=== PATIENT | male | born 1965 | race African-American/Black ===

== ENCOUNTER 2017-12-25 13:49 | Emergency (ER) | payer SELFPAY ==
[~2017-12-25] VITALS: Ht 165.1 cm; Wt 61.2 kg
[~2017-12-25 13:49] MED LIST: FLUC150T2 PO; LTRS15C TOP; NYST1POW22 TOP
[2017-12-25 14:20] LABS: BASOPHILS # (AUTO) 0.1 10^3/uL (0.0-0.1); BASOPHILS % (AUTO) 1 % (0-10); EOSINOPHILS # (AUTO) 0.1 10^3/uL (0.0-0.3); EOSINOPHILS % (AUTO) 2 % (0-10); HEMATOCRIT 43 % (40-54); LYMPHOCYTES # (AUTO) 1.7 X 10^3 (1.0-4.0); LYMPHOCYTES % (AUTO) 30 % (12-44); MEAN CORPUSCULAR HEMOGLOBIN 30 PG (25-34); MEAN CORPUSCULAR HGB CONC 35 G/DL (32-36); MEAN CORPUSCULAR VOLUME 86 FL (80-99); MEAN PLATELET VOLUME 8.6 FL (7.4-10.4); MONOCYTES # (AUTO) 0.7 X 10^3 (0.0-1.0); MONOCYTES % (AUTO) 11 % (0-12); NEUTROPHILS # (AUTO) 3.2 X 10^3 (1.8-7.8); NEUTROPHILS % (AUTO) 56 % (42-75); PLATELET COUNT 259 10^3/uL (130-400); RED BLOOD COUNT 5.01 10^6/uL (4.35-5.85); RED CELL DISTRIBUTION WIDTH 13.4 % (10.0-14.5); WHITE BLOOD COUNT 5.8 10^3/uL (4.3-11.0)
--- NOTE | 2017-12-25 14:24 | ED Lower Extremity ---
General Chief Complaint: Lower Extremity Stated Complaint: RT FOOT SWELLING AND PUSS DRAINAGE Source: patient Exam Limitations: no limitations History of Present Illness Date Seen by Provider: Dec 25, 2017 Time Seen by Provider: 14:00 Initial Comments Patient is a 52-year-old male who presents to the emergency room with complaints of purulent drainage from his right foot. He was seen and evaluated on 12/22/17 in are emergency room and was given oral antifungals and topical nystatin powder. He reports that the pain and swelling, and drainage started yesterday. He reports that the only reason he really came to the emergency room was to get a work note for today and tomorrow so that he could buy his foot air out. Onset: yesterday Pain/Injury Location: right foot Modifying Factors: Improves With Movement Allergies and Home Medications Allergies Coded Allergies: No Known Drug Allergies (Unverified , 05/18/10) Home Medications Betamethasone/Clotrimazole 15 Gm Cr, 0 TOP BID APPLY TO AFFECTED AREA(S) Prescribed by: PADILLA MENDEZ on 05/18/101812 Fluconazole 150 Mg Tablet, 150 MG PO WEEK Prescribed by: WINSTON PERALTA on 12/22/172045 Nystatin 1 Each Powder.ea., 1 EACH TOP TID Prescribed by: WINSTON PERALTA on 12/22/172045 Patient Home Medication List Home Medication List Reviewed: Yes Constitutional: see HPI; No chills, No fever EENTM: no symptoms reported Respiratory: see HPI; No cough, No short of breath, No wheezing Cardiovascular: see HPI; No chest pain, No edema, No palpitations Gastrointestinal: see HPI; No abdominal pain, No constipation, No diarrhea, No nausea Genitourinary: see HPI Musculoskeletal: see HPI; No gout, No joint pain Skin: see HPI; No change in color, No change in hair/nails Psychiatric/Neurological: See HPI; Denies Anxiety, Denies Depressed All Other Systems Reviewed Negative Unless Noted: Yes Past Jqzysbb-Yaixic-Qoszcn Hx Past Med/Social Hx: Reviewed Nursing Past Med/Soc Hx Patient Social History 2nd Hand Smoke Exposure: No Recent Foreign Travel: No Contact w/Someone Who Travel: No Past Medical History Surgeries: No Respiratory: No Cardiac: No Neurological: No Genitourinary: No Gastrointestinal: No Musculoskeletal: No Endocrine: No HEENT: No Cancer: No Psychosocial: No Integumentary: No Blood Disorders: No Family Medical History Reviewed Nursing Family Hx Physical Exam Vital Signs Vital Signs - First Documented 12/25/17 14:00 Temp 97.9 Pulse 98 Resp 22 B/P (MAP) 139/107 (118) Pulse Ox 97 Capillary Refill : General Appearance: WD/WN, no apparent distress HEENT: PERRL/EOMI, normal ENT inspection, TMs normal, pharynx normal Neck: non-tender, full range of motion, supple, normal inspection Cardiovascular: normal peripheral pulses, regular rate, rhythm, no edema, no gallop, no JVD, no murmur Respiratory: chest non-tender, lungs clear, normal breath sounds Gastrointestinal: normal bowel sounds, non tender, soft, no organomegaly, no pulsatile mass Back: normal inspection, no CVA tenderness Feet: right foot infection (there is purulent drainage that was cultured draining from in between each of the toes on the right foot. There is redness to the right great toe.), right foot pain, right foot soft tissue tenderness, right foot swelling Neurologic/Tendon: normal sensation, normal motor functions, normal tendon functions, responds to pain Neurologic/Psychiatric: alert, normal mood/affect, oriented x 3 Skin: normal color, warm/dry Lymphatic: no adenopathy Progress/Results/Core Measures Results/Orders Lab Results Laboratory Tests Test 12/25/17 14:10 Range/Units White Blood Count 5.8 4.3-11.0 10^3/uL Red Blood Count 5.01 4.35-5.85 10^6/uL Hemoglobin 15.0 13.3-17.7 G/DL Hematocrit 43 40-54 % Mean Corpuscular Volume 86 80-99 FL Mean Corpuscular Hemoglobin 30 25-34 PG Mean Corpuscular Hemoglobin Concent 35 32-36 G/DL Red Cell Distribution Width 13.4 10.0-14.5 % Platelet Count 259 130-400 10^3/uL Mean Platelet Volume 8.6 7.4-10.4 FL Neutrophils (%) (Auto) 56 42-75 % Lymphocytes (%) (Auto) 30 12-44 % Monocytes (%) (Auto) 11 0-12 % Eosinophils (%) (Auto) 2 0-10 % Basophils (%) (Auto) 1 0-10 % Neutrophils # (Auto) 3.2 1.8-7.8 X 10^3 Lymphocytes # (Auto) 1.7 1.0-4.0 X 10^3 Monocytes # (Auto) 0.7 0.0-1.0 X 10^3 Eosinophils # (Auto) 0.1 0.0-0.3 10^3/uL Basophils # (Auto) 0.1 0.0-0.1 10^3/uL Sodium Level 139 135-145 MMOL/L Potassium Level 4.6 3.6-5.0 MMOL/L Chloride Level 106 98-107 MMOL/L Carbon Dioxide Level 24 21-32 MMOL/L Anion Gap 9 5-14 MMOL/L Blood Urea Nitrogen 13 7-18 MG/DL Creatinine 1.15 0.60-1.30 MG/DL Estimat Glomerular Filtration Rate > 60 BUN/Creatinine Ratio 11 Glucose Level 111 H 70-105 MG/DL Calcium Level 9.5 8.5-10.1 MG/DL Total Bilirubin 0.5 0.1-1.0 MG/DL Aspartate Amino Transf (AST/SGOT) 21 5-34 U/L Alanine Aminotransferase (ALT/SGPT) 17 0-55 U/L Alkaline Phosphatase 51 40-136 U/L C-Reactive Protein High Sensitivity 1.65 H 0.00-0.50 MG/DL Total Protein 7.4 6.4-8.2 GM/DL Albumin 4.1 3.2-4.5 GM/DL My Orders Orders - DELISA ABREU Comprehensive Metabolic Panel (12/25/17 14:07) Saline Lock/Iv-Start (12/25/17 14:07) Cbc With Automated Diff (12/25/17 14:07) Wound Culture (12/25/17 14:07) Hs C Reactive Protein (12/25/17 14:15) Levofloxacin Tablet (Levaquin Tablet) (12/25/17 15:00) Medications Given in ED Current Medications Medications Dose Ordered Sig/Monica Route Start Time Stop Time Status Last Admin Dose Admin Levofloxacin 500 mg ONCE ONCE PO 12/25/17 15:00 12/25/17 15:01 DC 12/25/17 15:13 500 MG Vital Signs/I&O 12/25/17 12/25/17 14:00 15:24 Temp 97.9 97.9 Pulse 98 98 Resp 22 22 B/P (MAP) 139/107 (118) 139/107 (118) Pulse Ox 97 97 Progress Progress Note : Time: 14:57 Progress Note The patient is an established patient at [facility] and he reports that he has limited funds for prescriptions. I have ordered Levaquin by mouth 500 mg here in the emergency room because I suspect that the infection is a pseudomonas judging by the smell I have cultured the wound for microbiology studies. I am getting in touch with Dr. Brewer to set up a follow-up appointment and for writing the remainder of the Levaquin prescription that can be filled at [facility]. I spoke to Dr. Brewer and she is going to finish riding the prescription for Levaquin to be picked up at [facility] and she is set up a follow-up appointment for December 29 at 1020 Jodi Valles APRN Departure Impression Primary Impression: Infection of right foot Disposition: HOME, SELF-CARE Condition: Stable/Unchanged Departure-Patient Inst. Referrals: NO,LOCAL PHYSICIAN (PCP) Primary Care Physician [facility] Patient Instructions: Cellulitis (Skin Infection), Adult (DC) Add. Discharge Instructions: Take medication as directed. I spoke with Dr. Brewer and she is filling your prescription at [facility] you need to pick that up after you're discharged from here. The prescription is for Levaquin. You have a follow-up appointment scheduled for December 30 at 1020 with Jodi Valles APRN at the [facility]. Return back to the emergency room for any concerns as needed. All discharge instructions reviewed with patient and/or family. Voiced understanding. Work/School Note: Work Release Form Date Seen in the Emergency Department: Dec 25, 2017 Return to Work: Dec 29, 2017 Restrictions: No Restrictions DELISA ABREU Dec 25, 2017 14:24
[2017-12-25 14:37] LABS: ALANINE AMINOTRANSFERASE 17 U/L (0-55); ALBUMIN 4.1 GM/DL (3.2-4.5); ALKALINE PHOSPHATASE 51 U/L (40-136); BILIRUBIN,TOTAL 0.5 MG/DL (0.1-1.0); BUN/CREATININE RATIO 11; CALCIUM 9.5 MG/DL (8.5-10.1); CARBON DIOXIDE 24 MMOL/L (21-32); CHLORIDE 106 MMOL/L (98-107); CREATININE SERUM 1.15 MG/DL (0.60-1.30); GFR ESTIMATED > 60; GLUCOSE 111 MG/DL (70-105); POTASSIUM 4.6 MMOL/L (3.6-5.0); SODIUM 139 MMOL/L (135-145); TOTAL PROTEIN 7.4 GM/DL (6.4-8.2)
[2017-12-25] MEDS ORDERED: LEVOFLOXACIN 500 MG TAB (LEVAQUIN) PO ONE (15:00)
[2017-12-25 15:24] VITALS: BP 139/107
== END 2017-12-25 15:29 | disposition home or self-care (01) ==
LOC: EDUNIT# 13:49 → ER 13:51
DX: M79.89 Other specified soft tissue disorders (principal)
CPT/HCPCS: 36415; 80053; 85025; 86141; 87070; 87077; 87186; 87205

== ENCOUNTER → 2018-05-01 | Outpatient (CLI) | payer OTHER | LOC: WOUNDCARE 08:02 | PROVIDERS: ATTEND Surgery | DX: B35.3 Tinea pedis (principal); T65.222A Toxic effect of tobacco cigarettes, intentional self-harm, initial encounter | CPT/HCPCS: 99213 ==

== ENCOUNTER → 2018-05-08 | Outpatient (CLI) | payer OTHER | LOC: WOUNDCARE 08:31 | PROVIDERS: ATTEND Surgery | DX: B35.3 Tinea pedis (principal) | CPT/HCPCS: 99212 ==

== ENCOUNTER → 2018-05-14 | Outpatient (CLI) | payer OTHER | LOC: WOUNDCARE 12:45 | PROVIDERS: ATTEND Orthopaedic Surgery Hand Surgery | DX: B35.3 Tinea pedis (principal); T65.222A Toxic effect of tobacco cigarettes, intentional self-harm, initial encounter | CPT/HCPCS: 99212 ==

== ENCOUNTER 2021-10-08 10:16 | Emergency (ER) | payer BC ==
[~2021-10-08] VITALS: Ht 165.1 cm; Wt 61.2 kg
[~2021-10-08 10:16] MED LIST changes: -FLUC150T2 PO; +FLUC150T41 PO
--- NOTE | 2021-10-08 11:08 | ED General ---
General Chief Complaint: Cardiac/General Problems Stated Complaint: DIZZY, VOMTING, HEADACHE Nursing Triage Note: PT AMB TO RM 10 WITH COMPLAINT OF N/V, HTN, DIZZINESS, HOUSE FOR A COUPLE DAYS. NO HX OF HTN. Source of Information: Patient Exam Limitations: No Limitations History of Present Illness Date Seen by Provider: Oct 08, 2021 Time Seen by Provider: 11:06 Initial Comments Patient is a 56-year-old male who presents ED with headache, dizziness, vomiting with generalized weakness. Symptoms started last night. States he started feeling weak and fatigue and gradually developed a frontal headache and rates pain 4 out of 10. Head pain radiates to the top part of his head has been constant without increasing pain with exertion or movement. Blurry vision bilateral with generalized weakness. Did vomit once this morning when he got up. Report bilateral ear ringing. No recent URI. Dizziness seems to be worse with walking, but denies the room spinning. No chest pain cough, shortness of breath, abdominal pain, diarrhea or urinary symptoms. Patient hypertensive here in the ED. Denies of any current medical problems. Denies taking any current medication. Normal urination. No one else at home has been sick. Denies fever, neck pain, mid to lower back pain, unilateral muscle weakness or sensory changes facial droop, change in mental status, hallucinations. Allergies and Home Medications Allergies Coded Allergies: No Known Drug Allergies (Unverified , 05/18/10) Patient Home Medication List Home Medication List Reviewed: Yes Multivitamin (Multivitamin) 1 Each Tablet, 1 EACH PO DAILY, (Reported) Entered as Reported by: SAIGE TA on 10/09/21 0939 Discontinued Medications Betamethasone/Clotrimazole (Lotrisone Cream 15 Gm) 15 Gm Cr, 0 TOP BID Discontinued Reason: No Longer Taking Prescribed by: PADILLA MENDEZ on 05/18/10 181 Fluconazole (Fluconazole) 150 Mg Tablet, 150 MG PO WEEK Discontinued Reason: No Longer Taking Prescribed by: WINSTON PERALTA on 12/22/172045 Hydrochlorothiazide (Hydrochlorothiazide) 12.5 Mg Tablet, 12.5 MG PO DAILY Discontinued Reason: No Longer Taking Prescribed by: SUSANNA MALDONADO on 10/08/21 1450 Nystatin (Nystatin) 1 Each Powder.ea., 1 EACH TOP TID Discontinued Reason: No Longer Taking Prescribed by: WINSTON PERALTA on 12/22/172045 Review of Systems Review of Systems Constitutional: No chills, No diaphoresis; malaise, weakness EENTM: blurred vision Respiratory: No cough, No hemoptysis, No short of breath Cardiovascular: No chest pain, No edema Gastrointestinal: No abdominal pain, No diarrhea; nausea, vomiting Genitourinary: No decreased output, No discharge Musculoskeletal: No back pain, No joint pain, No muscle stiffness, No muscle cramps Skin: No change in color, No change in hair/nails Psychiatric/Neurological: Headache; Denies Numbness; Weakness All Other Systems Reviewed Negative Unless Noted: Yes Past Oxgicjk-Owypdm-Wookln Hx Patient Social History Tobacco Use?: Yes Tobacco type used: Cigarettes Smoking Status: Current Everyday Smoker Use of E-Cig and/or Vaping dev: No Substance use?: Yes Substance type: Marijuana Alcohol Use?: No Pt feels they are or have been: No Immunizations Up To Date First/Initial COVID19 Vaccinat: 2020 Second COVID19 Vaccination Maury: 2020 COVID19 Vaccine Physician Practice Coordinator: emma Seasonal Allergies Seasonal Allergies: No Past Medical History Surgeries: Yes (LUNG ) Respiratory: No Cardiac: No Neurological: No Genitourinary: No Gastrointestinal: No Musculoskeletal: No Endocrine: No HEENT: No Cancer: No Psychosocial: No Integumentary: No Blood Disorders: No Physical Exam Vital Signs Vital Signs - First Documented 10/08/21 10:24 Temp 36.8 Pulse 72 Resp 16 B/P (MAP) 175/119 (137) Pulse Ox 100 O2 Delivery Room Air Capillary Refill : Less Than 3 Seconds Height, Weight, BMI Height: 5'5.00" Weight: 135lbs. 0oz. [id number]; 22.00 BMI Method:Stated General Appearance: No Apparent Distress, WD/WN Eyes: Bilateral Eye Normal Inspection, Bilateral Eye PERRL, Bilateral Eye EOMI HEENT: PERRL/EOMI, TMs Normal, Normal ENT Inspection, Pharynx Normal Neck: Full Range of Motion, Normal Inspection, Non Tender, Supple, Other (No meningeal signs) Respiratory: Chest Non Tender, Lungs Clear, Normal Breath Sounds, No Accessory Muscle Use, No Respiratory Distress Cardiovascular: Regular Rate, Rhythm, No Edema, No Gallop, No JVD Gastrointestinal: Normal Bowel Sounds, No Organomegaly Back: Normal Inspection, No CVA Tenderness Extremity: Normal Capillary Refill, Normal Inspection, Normal Range of Motion, Non Tender Neurologic/Psychiatric: Alert, Oriented x3, No Motor/Sensory Deficits, Normal Mood/Affect, integrated marketing intern II-XII Norm as Tested Skin: Normal Color, Warm/Dry Progress/Results/Core Measures Suspected Sepsis SIRS Temperature: Pulse: 72 Respiratory Rate: 16 Laboratory Tests 10/08/21 10:30: White Blood Count 4.9 Blood Pressure 175 /119 Mean: 137 Laboratory Tests 10/08/21 10:30: Creatinine 1.08, INR Comment 1.0, Platelet Count 252, Total Bilirubin 0.5 Results/Orders Lab Results Laboratory Tests Test 10/08/21 10:30 10/08/21 12:07 10/08/21 12:24 10/08/21 14:37 Range/Units White Blood Count 4.9 4.3-11.0 10^3/uL Red Blood Count 5.38 4.30-5.52 10^6/uL Hemoglobin 15.7 13.3-17.7 g/dL Hematocrit 48 40-54 % Mean Corpuscular Volume 89 80-99 fL Mean Corpuscular Hemoglobin 29 25-34 pg Mean Corpuscular Hemoglobin Concent 33 32-36 g/dL Red Cell Distribution Width 12.6 10.0-14.5 % Platelet Count 252 130-400 10^3/uL Mean Platelet Volume 8.7 L 9.0-12.2 fL Immature Granulocyte % (Auto) 0 % Neutrophils (%) (Auto) 50 42-75 % Lymphocytes (%) (Auto) 37 12-44 % Monocytes (%) (Auto) 10 0-12 % Eosinophils (%) (Auto) 3 0-10 % Basophils (%) (Auto) 1 0-10 % Neutrophils # (Auto) 2.4 1.8-7.8 10^3/uL Lymphocytes # (Auto) 1.8 1.0-4.0 10^3/uL Monocytes # (Auto) 0.5 0.0-1.0 10^3/uL Eosinophils # (Auto) 0.1 0.0-0.3 10^3/uL Basophils # (Auto) 0.0 0.0-0.1 10^3/uL Immature Granulocyte # (Auto) 0.0 0.0-0.1 10^3/uL Prothrombin Time 14.1 12.2-14.7 SEC INR Comment 1.0 0.8-1.4 Activated Partial Thromboplast Time 32 24-35 SEC Sodium Level 138 135-145 MMOL/L Potassium Level 4.1 3.6-5.0 MMOL/L Chloride Level 104 98-107 MMOL/L Carbon Dioxide Level 22 21-32 MMOL/L Anion Gap 12 5-14 MMOL/L Blood Urea Nitrogen 13 7-18 MG/DL Creatinine 1.08 0.60-1.30 MG/DL Estimat Glomerular Filtration Rate 80 BUN/Creatinine Ratio 12 Glucose Level 90 70-105 MG/DL Calcium Level 9.4 8.5-10.1 MG/DL Corrected Calcium 9.2 8.5-10.1 MG/DL Magnesium Level 1.8 1.6-2.4 MG/DL Total Bilirubin 0.5 0.1-1.0 MG/DL Aspartate Amino Transf (AST/SGOT) 26 5-34 U/L Alanine Aminotransferase (ALT/SGPT) 20 0-55 U/L Alkaline Phosphatase 53 40-136 U/L Troponin I < 0.028 < 0.028 <0.028 NG/ML B-Type Natriuretic Peptide 14.6 <100.0 PG/ML Total Protein 7.7 6.4-8.2 GM/DL Albumin 4.3 3.2-4.5 GM/DL Lipase 128 H 8-78 U/L Urine Color YELLOW Urine Clarity CLEAR Urine pH 7.5 5-9 Urine Specific [place] 1.020 1.016-1.022 Urine Protein NEGATIVE NEGATIVE Urine Glucose (UA) NEGATIVE NEGATIVE Urine Ketones NEGATIVE NEGATIVE Urine Nitrite NEGATIVE NEGATIVE Urine Bilirubin NEGATIVE NEGATIVE Urine Urobilinogen 0.2 < = 1.0 MG/DL Urine Leukocyte Esterase NEGATIVE NEGATIVE Urine RBC (Auto) NEGATIVE NEGATIVE Urine RBC NONE /HPF Urine WBC NONE /HPF Urine Squamous Epithelial Cells 0-2 /HPF Urine Crystals NONE /LPF Urine Bacteria NEGATIVE /HPF Urine Casts NONE /LPF Urine Mucus SMALL H /LPF Urine Culture Indicated NO Influenza Type A (RT-PCR) Not Detected Not Detecte Influenza Type B (RT-PCR) Not Detected Not Detecte SARS-CoV-2 RNA (RT-PCR) Not Detected Not Detecte My Orders Orders - PIYUSH WOODWARD Cbc With Automated Diff (10/08/21 11:02) Comprehensive Metabolic Panel (10/08/21 11:02) Lipase (10/08/21 11:02) Magnesium (10/08/21:) Partial Thromboplastin Time (10/08/21:) Protime With Inr (10/08/21:) Ekg Tracing (10/08/21:) Chest 1 View, Ap/Pa Only (10/08/21:) Ct Head Wo (10/08/21:) Ua Culture If Indicated (10/08/21:) Troponin I [place] (10/08/21:) Bnp [place] (10/08/21:) Covid 19 Inhouse Test (10/08/21:) Influenza A And B By Pcr (10/08/21:) Hydralazine Injection (Apresoline Inject (10/08/21 11:15) Troponin I [place] (10/08/21 14:32) Medications Given in ED Vital Signs/I&O 10/08/21 10/08/21 10:24 15:24 Temp 36.8 Pulse 72 81 Resp 16 16 B/P (MAP) 175/119 (137) 175/108 Pulse Ox 100 99 O2 Delivery Room Air Room Air Capillary Refill : Less Than 3 Seconds Blood Pressure Mean: 137 ECG Comment Sinus rhythm, probable left atrial enlargement, left ventricular hypertrophy, mild ST elevation in the anterior leads, 70 bpm, QRS duration 92 MS, QTc 442 MS. Departure Communication (Admissions) Patient on arrival was hypertensive. Patient Was given hydralazine with improvement to 163/100. Continue to fluctuate with his blood pressure. Patient neuro exam unremarkable. No evidence of nystagmus. Had no dizziness while sitting still. Seems the dizziness occurs when he stands. He reports ear ringing. bilateral TMs clear. No meningeal signs. Afebrile. No chest pain shortness of breath cough diarrhea. Did vomit once this morning. CT scan of the head negative for acute abnormality. His pain does not increase with exertion or intensity. No focal neural deficits. Cardiac work-up unremarkable. Serial troponin unremarkable. EKG did show did sinus rhythm with probable left atrial enlargement, left ventricular hypertrophy and ST elevation 1mm in the anterior lead. No consecutive leaves with elevation. Patient CT scan negative for acute hemorrhaging. Lab work was otherwise unremarkable. Urinalysis negative for infection. Covid influenza negative. No meningeal signs. No significant nystagmus noted with head movement. He states head movement or when standing results in this vomiting and dizziness. Denies of any current room spinning. Patient states he was feeling much better and was requesting to be discharged. Tolerated p.o. fluid. Vertigo, migraine potential vestibular versus hypertension versus other neurological etiology. If any worsening symptoms strongly recommend return back to ED for further evaluation. Neurochecks here every 1 hour were unremarkable. Impression Primary Impression: Headache Additional Impressions: Elevated blood pressure reading Dizziness Disposition: 01 HOME, SELF-CARE Condition: Stable Departure-Patient Inst. Decision time for Depature: 14:50 Referrals: [facility] (PCP/Family) Primary Care Physician Patient Instructions: High Blood Pressure (DC) PIYUSH WOODWARD Oct 08, 2021 11:08
[2021-10-08 11:13] LABS: BASOPHILS % (AUTO) 1 % (0-10); EOSINOPHILS # (AUTO) 0.1 10^3/uL (0.0-0.3); EOSINOPHILS % (AUTO) 3 % (0-10); HEMATOCRIT 48 % (40-54); HEMOGLOBIN 15.7 g/dL (13.3-17.7); LYMPHOCYTES # (AUTO) 1.8 10^3/uL (1.0-4.0); LYMPHOCYTES % (AUTO) 37 % (12-44); MEAN CORPUSCULAR HEMOGLOBIN 29 pg (25-34); MEAN CORPUSCULAR HGB CONC 33 g/dL (32-36); MEAN CORPUSCULAR VOLUME 89 fL (80-99); MEAN PLATELET VOLUME 8.7 fL (9.0-12.2); MONOCYTES # (AUTO) 0.5 10^3/uL (0.0-1.0); MONOCYTES % (AUTO) 10 % (0-12); NEUTROPHILS # (AUTO) 2.4 10^3/uL (1.8-7.8); NEUTROPHILS % (AUTO) 50 % (42-75); PLATELET COUNT 252 10^3/uL (130-400); WHITE BLOOD COUNT 4.9 10^3/uL (4.3-11.0)
[2021-10-08] MEDS ORDERED: hydrALAZINE (APESOLINE) 20 MG/ML VIAL IV ONE (11:15)
[2021-10-08 11:18] LABS: PROTHROMBIN TIME PATIENT 14.1 SEC (12.2-14.7)
[2021-10-08 11:19] LABS: ALBUMIN 4.3 GM/DL (3.2-4.5); CHLORIDE 104 MMOL/L (98-107); POTASSIUM 4.1 MMOL/L (3.6-5.0); SODIUM 138 MMOL/L (135-145)
[2021-10-08 11:20] LABS: CALCIUM 9.4 MG/DL (8.5-10.1)
[2021-10-08 11:21] LABS: GLUCOSE 90 MG/DL (70-105)
[2021-10-08 11:22] LABS: TOTAL PROTEIN 7.7 GM/DL (6.4-8.2)
[2021-10-08 11:23] LABS: BILIRUBIN,TOTAL 0.5 MG/DL (0.1-1.0); CARBON DIOXIDE 22 MMOL/L (21-32)
[2021-10-08 11:25] LABS: ALKALINE PHOSPHATASE 53 U/L (40-136); CREATININE SERUM 1.08 MG/DL (0.60-1.30); GFR ESTIMATED 80
[2021-10-08 11:26] LABS: BUN/CREATININE RATIO 12
[2021-10-08 11:28] LABS: ALANINE AMINOTRANSFERASE 20 U/L (0-55); MAGNESIUM 1.8 MG/DL (1.6-2.4)
[2021-10-08 11:29] LABS: LIPASE 128 U/L (8-78)
[2021-10-08 12:16] LABS: BILIRUBIN,URINE NEGATIVE (NEGATIVE); CLARITY,URINE CLEAR; COLOR,URINE YELLOW; GLUCOSE, URINE (UA) NEGATIVE (NEGATIVE); KETONES,URINE NEGATIVE (NEGATIVE); LEUKOCYTE ESTERASE ,URINE NEGATIVE (NEGATIVE); NITRITE,URINE NEGATIVE (NEGATIVE); PH,URINE 7.5 (5-9); PROTEIN,URINE NEGATIVE (NEGATIVE)
--- NOTE | 2021-10-08 12:20 | Diagnostic Imaging Report ---
CHEST 1 VIEW, AP/PA ONLY Indication: Cough Comparison: None available. Findings: Ill-defined opacities are present in the left midlung zone. No pleural effusion or pneumothorax. Normal cardiomediastinal silhouette. Impression: 1. Left midlung zone ill-defined opacities may represent pneumonia given patient's history. Consider followup radiographs in 6 weeks after appropriate medical management to ensure resolution. Dictated by: Dictated on workstation # [id number]
[2021-10-08 12:30] LABS: BACTERIA,URINE NEGATIVE /HPF; SQUAMOUS EPITHELIAL CELL,UR 0-2 /HPF
--- NOTE | 2021-10-08 14:44 | Diagnostic Imaging Report ---
PROCEDURE: CT head without contrast. TECHNIQUE: Multiple contiguous axial images were obtained through the brain without the use of intravenous contrast. Auto Exposure Controls were utilized during the CT exam to meet ALARA standards for radiation dose reduction. INDICATION: 48-year-old male, hypertension, dizziness, headache for a couple of days. CORRELATION: None FINDINGS: There is no midline shift or mass effect. The ventricles and sulci are unremarkable. No evidence for acute intracranial hemorrhage, abnormal extra-axial fluid collections or cerebral edema is present. The basilar cisterns are unremarkable. The bony calvarium is intact. The visualized paranasal sinuses and mastoid air cells are clear. IMPRESSION: Negative appearing noncontrast CT of the head. Dictated by: Dictated on workstation # [id number]
[2021-10-08] MEDS ORDERED: HYDR12.56 PO (14:50)
[2021-10-08 15:24] VITALS: BP 175/108
[2021-10-09] MEDS ORDERED: MULT-1136 PO (09:39)
== END 2021-10-08 15:24 | disposition home or self-care (01) ==
LOC: EDUNIT# 10:16 → ER 10:17
DX: I10 Essential (primary) hypertension (principal); F17.210 Nicotine dependence, cigarettes, uncomplicated; Z20.822 Contact with and (suspected) exposure to COVID-19
CPT/HCPCS: 36415; 70450; 71045; 80053; 81000; 83690; 83735; 83880; 84484; 85025; 85610; 85730; 87636; 93005

== ENCOUNTER 2021-10-08 20:21 | Inpatient (IN) | payer BC ==
[~2021-10-08] VITALS: Ht 165 cm; Wt 56.6 kg
[~2021-10-08 20:21] MED LIST changes: +HYDR12.56 PO
[2021-10-08] MEDS ORDERED: NS IV 1000 ML 1,000 ML IV STA (20:32)
[2021-10-08] MEDS ORDERED: ONDANSETRON 4 MG/2 ML (SDV) Z0FRAN IVP ONE (20:45)
[2021-10-08 20:48] LABS: BASOPHILS % (AUTO) 1 % (0-10); EOSINOPHILS % (AUTO) 1 % (0-10); HEMATOCRIT 50 % (40-54); HEMOGLOBIN 16.6 g/dL (13.3-17.7); LYMPHOCYTES # (AUTO) 1.5 10^3/uL (1.0-4.0); LYMPHOCYTES % (AUTO) 31 % (12-44); MEAN CORPUSCULAR HEMOGLOBIN 29 pg (25-34); MEAN CORPUSCULAR HGB CONC 33 g/dL (32-36); MEAN CORPUSCULAR VOLUME 88 fL (80-99); MEAN PLATELET VOLUME 8.6 fL (9.0-12.2); MONOCYTES # (AUTO) 0.5 10^3/uL (0.0-1.0); MONOCYTES % (AUTO) 11 % (0-12); NEUTROPHILS # (AUTO) 2.8 10^3/uL (1.8-7.8); NEUTROPHILS % (AUTO) 57 % (42-75); PLATELET COUNT 234 10^3/uL (130-400); WHITE BLOOD COUNT 4.9 10^3/uL (4.3-11.0)
[2021-10-08] MEDS ORDERED: ACETAMINOPHEN 500 MG TAB (TYLENOL) PO ONE (21:00)
[2021-10-08] MEDS ORDERED: MECLIZINE 25 MG (ANTIVERT) TAB PO ONE (21:00)
[2021-10-08] MEDS ORDERED: hydrALAZINE (APESOLINE) 20 MG/ML VIAL IV ONE (21:00)
--- NOTE | 2021-10-08 21:06 | ED Headache ---
General Chief Complaint: Cardiac/General Problems Stated Complaint: HIGH BLOOD PRESSURE,HOUSE/V/N Nursing Triage Note: Pt ambulatory to ED c/o HTN and headache. Pt seen in this ED today. Source: patient Exam Limitations: no limitations History of Present Illness Date Seen by Provider: Oct 08, 2021 Time Seen by Provider: 20:57 Initial Comments Patient is a 56-year-old male who presents ED with headache, dizziness and vomiting. Patient was discharged from our facility earlier this afternoon. He states he felt better but went home and became worse. States he has had this continuous headache frontal head pain with radiation to the top part of his scalp rates 8 out of 10 on arrival. Reports he has associated dizziness when he moves his head or when he stands up. Vomited a few times at home. Vomited again this evening when he stood up. According to patient symptoms actually started between 8 and 10 am yesterday acute onset of severe head pain and dizziness. Gets relief when he keeps his head still. Patient was discharged with hydrochlorothiazide concerning for elevated blood pressure with known history. Denies history of similar symptoms in the past. No history of migraines. Reports bilateral ear ringing without ear pain. Also reports neck discomfort without visual changes. Denies current chest pain, shortness of breath, cough, diarrhea, blurring vision, unilateral muscle weakness or confusion. According to family patient has a unsteady gait. Allergies and Home Medications Allergies Coded Allergies: No Known Drug Allergies (Unverified , 05/18/10) Patient Home Medication List Home Medication List Reviewed: Yes Multivitamin (Multivitamin) 1 Each Tablet, 1 EACH PO DAILY, (Reported) Entered as Reported by: SAIGE TA on 10/09/21 0939 Last Action: Reviewed Discontinued Medications Betamethasone/Clotrimazole (Lotrisone Cream 15 Gm) 15 Gm Cr, 0 TOP BID Discontinued Reason: No Longer Taking Prescribed by: PADILLA MENDEZ on 05/18/10 181 Last Action: Discontinued Fluconazole (Fluconazole) 150 Mg Tablet, 150 MG PO WEEK Discontinued Reason: No Longer Taking Prescribed by: WINSTON PERALTA on 12/22/17 2046 Last Action: Discontinued Hydrochlorothiazide (Hydrochlorothiazide) 12.5 Mg Tablet, 12.5 MG PO DAILY Discontinued Reason: No Longer Taking Prescribed by: SUSANNA MALDONADO on 10/08/21 1450 Last Action: Discontinued Nystatin (Nystatin) 1 Each Powder.ea., 1 EACH TOP TID Discontinued Reason: No Longer Taking Prescribed by: WINSTON PERALTA on 12/22/172045 Last Action: Discontinued Review of Systems Review of Systems Constitutional: No chills, No diaphoresis, No malaise, No weakness Eyes: Denies Blindness, Denies Drainage, Denies Decreased Acuity, Denies Inflammation, Denies Photophobia Ears, Nose, Mouth, Throat: denies ear pain, denies ear discharge Respiratory: No cough, No dyspnea on exertion Cardiovascular: No edema Gastrointestinal: No abdominal pain, No diarrhea; nausea, vomiting Genitourinary: No decreased output, No discharge Musculoskeletal: No back pain, No joint pain Skin: No change in color, No change in hair/nails Psychiatric/Neurological: Denies Anxiety, Denies Depressed All Other Systems Reviewed Negative Unless Noted: Yes Past Avnaqle-Pqlqsh-Nvfdzd Hx Patient Social History Tobacco Use?: Yes Tobacco type used: Cigarettes Smoking Status: Current Everyday Smoker Substance use?: No Alcohol Use?: No Immunizations Up To Date Influenza Vaccine Up-to-Date: No; Not Current First/Initial COVID19 Vaccinat: 2020 Second COVID19 Vaccination Maury: 2020 Third COVID19 Vaccination Date: 2020 Seasonal Allergies Seasonal Allergies: No Past Medical History Surgeries: Yes (LUNG ) Respiratory: No Cardiac: No Neurological: No Genitourinary: No Gastrointestinal: No Musculoskeletal: No Endocrine: No HEENT: No Cancer: No Psychosocial: No Integumentary: No Blood Disorders: No Physical Exam Vital Signs Vital Signs - First Documented 10/08/21 20:40 Temp 36.2 Pulse 61 Resp 17 B/P (MAP) 190/112 (138) Pulse Ox 99 O2 Delivery Room Air Capillary Refill : Less Than 3 Seconds Height, Weight, BMI Height: 5'5.00" Weight: 135lbs. 0oz. [id number]; 22.00 BMI Method:Stated General Appearance: WD/WN, no apparent distress HEENT: PERRL/EOMI, normal ENT inspection, TMs normal, pharynx normal Neck: non-tender, full range of motion, supple, normal inspection Cardiovascular: regular rate, rhythm, no edema, no gallop, no JVD Respiratory: chest non-tender, lungs clear, normal breath sounds, no respiratory distress, no accessory muscle use Gastrointestinal: normal bowel sounds, non tender, soft Back: normal inspection, no CVA tenderness Extremities: normal range of motion, non-tender, normal inspection Coordination/Gait: normal finger to nose Motor/Sensory: no motor deficit, no sensory deficit Skin: normal color, warm/dry Progress/Results/Core Measures Results/Orders Lab Results Laboratory Tests Test 10/08/21 20:42 Range/Units White Blood Count 4.9 4.3-11.0 10^3/uL Red Blood Count 5.64 H 4.30-5.52 10^6/uL Hemoglobin 16.6 13.3-17.7 g/dL Hematocrit 50 40-54 % Mean Corpuscular Volume 88 80-99 fL Mean Corpuscular Hemoglobin 29 25-34 pg Mean Corpuscular Hemoglobin Concent 33 32-36 g/dL Red Cell Distribution Width 12.5 10.0-14.5 % Platelet Count 234 130-400 10^3/uL Mean Platelet Volume 8.6 L 9.0-12.2 fL Immature Granulocyte % (Auto) 0 % Neutrophils (%) (Auto) 57 42-75 % Lymphocytes (%) (Auto) 31 12-44 % Monocytes (%) (Auto) 11 0-12 % Eosinophils (%) (Auto) 1 0-10 % Basophils (%) (Auto) 1 0-10 % Neutrophils # (Auto) 2.8 1.8-7.8 10^3/uL Lymphocytes # (Auto) 1.5 1.0-4.0 10^3/uL Monocytes # (Auto) 0.5 0.0-1.0 10^3/uL Eosinophils # (Auto) 0.0 0.0-0.3 10^3/uL Basophils # (Auto) 0.0 0.0-0.1 10^3/uL Immature Granulocyte # (Auto) 0.0 0.0-0.1 10^3/uL Sodium Level 138 135-145 MMOL/L Potassium Level 3.9 3.6-5.0 MMOL/L Chloride Level 101 98-107 MMOL/L Carbon Dioxide Level 21 21-32 MMOL/L Anion Gap 16 H 5-14 MMOL/L Blood Urea Nitrogen 12 7-18 MG/DL Creatinine 1.13 0.60-1.30 MG/DL Estimat Glomerular Filtration Rate 75 BUN/Creatinine Ratio 11 Glucose Level 100 70-105 MG/DL Calcium Level 9.5 8.5-10.1 MG/DL Corrected Calcium 9.3 8.5-10.1 MG/DL Total Bilirubin 0.7 0.1-1.0 MG/DL Aspartate Amino Transf (AST/SGOT) 25 5-34 U/L Alanine Aminotransferase (ALT/SGPT) 18 0-55 U/L Alkaline Phosphatase 66 40-136 U/L Total Protein 8.0 6.4-8.2 GM/DL Albumin 4.3 3.2-4.5 GM/DL My Orders Orders - PIYUSH WOODWARD Cbc With Automated Diff (10/08/21 20:32) Comprehensive Metabolic Panel (10/08/21 20:32) Ns Iv 1000 Ml (Sodium Chloride 0.9%) (10/08/21 20:32) Ondansetron Injection (Zofran Injectio (10/08/21 20:45) Hydralazine Injection (Apresoline Inject (10/08/21 21:00) Dexamethasone Injection (Decadron Inje (10/08/21 21:00) Acetaminophen Tablet (Tylenol Tablet) (10/08/21 21:00) Meclizine Tablet (Antivert Tablet) (10/08/21 21:00) Ekg Tracing (10/08/21 21:08) Medications Given in ED Vital Signs/I&O 10/08/21 20:40 Temp 36.2 Pulse 61 Resp 17 B/P (MAP) 190/112 (138) Pulse Ox 99 O2 Delivery Room Air Blood Pressure Mean: 138 Departure Communication (Admissions) Time/Spoke to Admitting Phy: 21:53 Patient was admitted to medical surgical with telemetry under Dr. Licona Communication (PCP) Patient presents to ED with headache vomiting dizziness. Personally saw patient earlier today. He was hypertensive was given dose of hydralazine and nausea medication with improvement of his symptoms. Patient was requesting to leave. [place] like patient was upset secondary to the length of time he was here. Issues was with receiving Covid swab and getting his CT scan of his head. Patient went home was not able to keep his hydrochlorothiazide down because of the vomiting. Continue to have dizzines with any type of head movement or when he stands. Continuous head pain with relief when he sit still. On arrival patient neuro exam unremarkable. He has no focal neural deficit, slurred speech, facial droop, unilateral weakness or sensory changes. No evidence of bruit. He is afebrile. Heart rate around 62 but did have a elevated blood pressure of 190/112 on arrival. Patient was given IV hydralazine with improvement to 168/98. Patient initially was given Zofran and started him on a liter of fluid. Attempted to do Manderson Hallpike patient became nauseous and vomited. Patient then was given meclizine, tylenol, and patient vomited. Patient was also given decadron. Denies history of headaches. Concerning for the headache and the vomiting. No visual changes at this time but reports some neck tightness. Vomiting is much better when his head is still. According to symptoms started around 8-10 o'clock yesterday morning with one episode of vomiting with acute onset of this headache and dizziness. Only occurs with head movement changes. Initial CT scan this morning was negative for acute hemorrhaging, mass. Would suspect positive imaging for SAH at that time, However LP would need to be considered. Patient was not estatic about the procedure and would rather wait.Discuss risk and he acknowledges. I was able to convince patient for admission which i do recommend for further evaluation. Does report unsteady gait which may be associated to the vertigo vs other etiologies. Patient vital signs continue to improve. He is afebrile with normal white blood count. He does report some ear ringing which could be associated to some type of Mnire's disease versus vestibular neuritis or vestibular migraine. Bilateral TMs were clear. No recent URI. Afebrile without any meningeal signs. normal range of motion of the neck but did have some tightness. Recommend admission for further evaluation. Discussed patient Dr. Licona who accepts patient at this time. IV fluids, IV nausea medication, meclizine and hydralazine for blood pressure. Impression Primary Impression: Dizziness Additional Impression: Hypertensive urgency Disposition: ADMITTED INPATIENT Condition: Stable Admissions Decision to Admit Reason: Admit from ER (General) Decision to Admit/Date: Oct 08, 2021 Time/Decision to Admit Time: 21:53 Departure-Patient Inst. Referrals: [facility] [place] (PCP/Family) Primary Care Physician PIYUSH WOODWARD Oct 08, 2021 21:06
[2021-10-08 21:11] LABS: ALBUMIN 4.3 GM/DL (3.2-4.5); BILIRUBIN,TOTAL 0.7 MG/DL (0.1-1.0); CALCIUM 9.5 MG/DL (8.5-10.1); CREATININE SERUM 1.13 MG/DL (0.60-1.30); POTASSIUM 3.9 MMOL/L (3.6-5.0)
[2021-10-08 22:41] VITALS: BP 180/100
[2021-10-09] MEDS ORDERED: PROMETHAZINE INJ 25 MG/ML (PHENERGAN) AMP IV PRN (00:15)
[2021-10-09] MEDS ORDERED: hydrALAZINE (APESOLINE) 20 MG/ML VIAL IV PRN (00:15)
[2021-10-09] MEDS: ACETAMINOPHEN 500 MG TAB (TYLENOL) PO PRN ×2 (02:45→19:41)
[2021-10-09 02:46] VITALS: BP 162/84
[2021-10-09 03:18] VITALS: BP 162/84
[2021-10-09] MEDS ORDERED: KETOROLAC 30 MG/ML VIAL IVP ONE (04:45)
[2021-10-09] MEDS ORDERED: NS IV 1000 ML 1,000 ML IV SCH (04:45)
[2021-10-09] MEDS ORDERED: CATHETER FLUSH 10 ML SYR IV PRN (06:30)
[2021-10-09] MEDS ORDERED: IOHEXOL 350 MG/ML 100 ML (OMNIPAQUE 350) VIAL IV ONE (06:30)
[2021-10-09] MEDS ORDERED: NS 100 ML (IVPB) BAG IV ONE (06:30)
--- NOTE | 2021-10-09 06:59 | Diagnostic Imaging Report ---
EXAMINATION: CT angiography head and neck with and without contrast. TECHNIQUE: After intravenous administration of contrast, thin section axial CT angiography of the head and neck was performed to screen for LVO, and multiple reformats including MIP reconstructions. Postcontrast CT of the head was also obtained. All CT scans use one or more of the following dose optimizing techniques: automated exposure control, MA and/or KvP adjustment based on a patient size and exam type, or iterative reconstruction. CT angiogram was post-processed using RAPID LVO detection to include quantitative measurements of cerebral blood flow and automated results notification to the stroke and/or neurointerventional team. HISTORY: Hypertension, headache, vertigo COMPARISON: 10/08/2021 FINDINGS: HEAD: Anterior circulation: The visualized portions of the internal carotid arteries are unremarkable without significant plaque or stenosis. The anterior and middle cerebral arteries show no stenosis or intraluminal filling defects. No anterior circulation aneurysms are present. Posterior circulation: The visualized distal vertebral arteries are patent to the vertebrobasilar junction. The basilar artery and both posterior cerebral arteries are widely patent without stenosis. No posterior circulation aneurysms are present. The ventricles and sulci are normal. Mild hypodensities throughout the supratentorial white matter of both cerebral hemispheres. No acute intracranial hemorrhage or abnormal extra-axial fluid collections are present. No abnormal meningeal or parenchymal enhancement. The calvarium is intact. The mastoid air cells are clear. The visualized paranasal sinuses are clear. The orbits are normal. NECK: Arch: Conventional branching of the aortic arch. The visualized subclavian arteries are patent without stenosis. Right: The right common carotid, internal carotid, and external carotid arteries are widely patent without stenosis or dissection. No significant calcified plaque. The estimated internal carotid stenosis by NASCET criteria is 0%. The right vertebral artery is patent to the level of the vertebrobasilar junction. Left: The left common carotid, internal carotid, and external carotid arteries are widely patent without stenosis or dissection. No significant calcified plaque. The estimated internal carotid stenosis by NASCET criteria is 0%. The left vertebral artery is patent to the level of the vertebrobasilar junction. Other: The visualized thyroid gland is unremarkable. The cervical soft tissues are unremarkable. Emphysematous changes of the visualized lung apices. The cervical osseous structures are normal. IMPRESSION: 1. Normal vasculature in the head and neck without large vessel occlusion. Dictated by: Dictated on workstation # [id number]
[2021-10-09 07:48] VITALS: BP 161/99
[2021-10-09] MEDS ORDERED: MULT-1136 PO (09:39)
--- NOTE | 2021-10-09 10:15 | History & Physical ---
HPI History of Present Illness: Friday started having headache, dizziness, nausea and high blood pressure between 8 am and noon. He vomited once and laid down, but headache kept getting worse and by Friday morning headache was too severe to deal with so he came to the Er. He denies any history of similar episodes in the past. Denies history of high blood pressure. Only medication he takes is a one a day vitamin. Headache started all over entire head and 10/10 at onset. Has had sinus headaches in the past but this was very different. Friday he said he had blurry vision, but none at onset of headache. Headache is around a 6/10 now. Dizziness occurred with any standing up, could hardly move by himself, had to grab somebody. [place] off balance and like he would vomit. No dizziness if laying still. Vomiting occurred with moving head, but not other times. In the Er when he sat up to take pills and lifted his head up he vomited. This morning dizziness is still there although he does think it has decreased some, but he hasn't been out of bed. Denies fever. Admits some neck pain along back and sides, starting yesterday after coming to the Er. Denies hearing loss, but admits ringing in ears which is still present. Denies difficulty swallowing. Source: patient, other (partner) Date seen by provider: Oct 09, 2021 Time Seen by Provider: 10:15 Attending Physician Kavon Licona MD [facility] [place] Consult Date of Admission Oct 08, 2021 at 21:57 Home Medications Home Medications Reviewed patient Home Medication Reconciliation performed by pharmacy medication reconciliations health type technician and/or nursing. Patients Allergies have been reviewed. Allergies Coded Allergies: No Known Drug Allergies (Unverified , 05/18/10) LNI-Ylpbnk-Kqypxk Hx Patient Social History Smoking Status: Current Everyday Smoker (7 cigarettes per day) 2nd Hand Smoke Exposure: Yes Recent Hopitalizations: No Sexual Abuse: No Alcohol Use?: No Tobacco type used: Cigarettes Have you traveled recently?: No Immunizations Up To Date Influenza Vaccine Up-to-Date: No; Not Current First/Initial COVID19 Vaccinat: 03/2021 Second COVID19 Vaccination Maury: 04/2021 Past Medical History PMHx: Denies SurgHx: Punctured lung Family Medical History Significant Family History: Cancer (brother with lung and throat cancer), Cerebral Aneurysm (grandmother with anuerysm), Hypertension Review of Systems ([facility]) Constitutional: No fever; weakness (generalized) EENTM: No nose congestion, No throat pain Respiratory: No cough, No short of breath Cardiovascular: No chest pain Gastrointestinal: see HPI; No abdominal pain, No constipation, No diarrhea Genitourinary: No dysuria Musculoskeletal: No joint pain, No muscle pain Skin: No rash Psychiatric/Neurological: Denies Numbness, Denies Tingling Reviewed Test Results Reviewed Test Results Lab Laboratory Tests Test 10/08/21 20:42 Range/Units White Blood Count 4.9 4.3-11.0 10^3/uL Red Blood Count 5.64 H 4.30-5.52 10^6/uL Hemoglobin 16.6 13.3-17.7 g/dL Hematocrit 50 40-54 % Mean Corpuscular Volume 88 80-99 fL Mean Corpuscular Hemoglobin 29 25-34 pg Mean Corpuscular Hemoglobin Concent 33 32-36 g/dL Red Cell Distribution Width 12.5 10.0-14.5 % Platelet Count 234 130-400 10^3/uL Mean Platelet Volume 8.6 L 9.0-12.2 fL Immature Granulocyte % (Auto) 0 % Neutrophils (%) (Auto) 57 42-75 % Lymphocytes (%) (Auto) 31 12-44 % Monocytes (%) (Auto) 11 0-12 % Eosinophils (%) (Auto) 1 0-10 % Basophils (%) (Auto) 1 0-10 % Neutrophils # (Auto) 2.8 1.8-7.8 10^3/uL Lymphocytes # (Auto) 1.5 1.0-4.0 10^3/uL Monocytes # (Auto) 0.5 0.0-1.0 10^3/uL Eosinophils # (Auto) 0.0 0.0-0.3 10^3/uL Basophils # (Auto) 0.0 0.0-0.1 10^3/uL Immature Granulocyte # (Auto) 0.0 0.0-0.1 10^3/uL Sodium Level 138 135-145 MMOL/L Potassium Level 3.9 3.6-5.0 MMOL/L Chloride Level 101 98-107 MMOL/L Carbon Dioxide Level 21 21-32 MMOL/L Anion Gap 16 H 5-14 MMOL/L Blood Urea Nitrogen 12 7-18 MG/DL Creatinine 1.13 0.60-1.30 MG/DL Estimat Glomerular Filtration Rate 75 BUN/Creatinine Ratio 11 Glucose Level 100 70-105 MG/DL Calcium Level 9.5 8.5-10.1 MG/DL Corrected Calcium 9.3 8.5-10.1 MG/DL Total Bilirubin 0.7 0.1-1.0 MG/DL Aspartate Amino Transf (AST/SGOT) 25 5-34 U/L Alanine Aminotransferase (ALT/SGPT) 18 0-55 U/L Alkaline Phosphatase 66 40-136 U/L Total Protein 8.0 6.4-8.2 GM/DL Albumin 4.3 3.2-4.5 GM/DL Radiology CTA head 10/09/2021: IMPRESSION: 1. Normal vasculature in the head and neck without large vessel occlusion Physical Exam-([facility]) Physical Exam Vital Signs VS - Last 72 Hours, by Label 10/08/21 10/08/21 10/08/21 10/08/21 20:40 22:28 22:41 23:03 Temp 36.2 35.9 Pulse 61 79 76 Resp 17 12 20 B/P (MAP) 190/112 (138) 159/88 180/100 (126) Pulse Ox 99 98 98 O2 Delivery Room Air Room Air Room Air Room Air 10/09/21 10/09/21 10/09/21 10/09/21 00:03 01:00 02:46 03:18 Temp 36.3 36.3 Pulse 70 95 86 86 Resp 20 20 B/P (MAP) 162/84 (110) 162/84 (110) Pulse Ox 97 97 O2 Delivery Room Air Room Air 10/09/21 10/09/21 10/09/21 10/09/21 07:00 07:48 11:19 13:00 Temp 37.5 36.2 Pulse 67 76 62 62 Resp 20 18 B/P (MAP) 161/99 (119) 162/87 (112) Pulse Ox 98 98 O2 Delivery Room Air Room Air 10/09/21 16:00 Temp 36.2 Pulse 63 Resp 18 B/P (MAP) 145/78 (100) Pulse Ox 99 O2 Delivery Room Air Capillary Refill : Less Than 3 Seconds General Appearance: no apparent distress Eyes: Bilateral Eye PERRL, Bilateral Eye EOMI HEENT: PERRL/EOMI, pharynx normal Neck: full range of motion, supple Respiratory: lungs clear, normal breath sounds Cardiovascular: regular rate, rhythm, no murmur Gastrointestinal: normal bowel sounds, non tender, soft Extremities: no pedal edema Neurologic/Psychiatric: financial management analyst II-XII nml as tested, alert, normal mood/affect; No abnormal cerebellar tests; facial droop; No motor weakness; other (dizzy when sitting up but able to tolerate, has to sit down immediately after standing due to dizziness) Skin: normal color, warm/dry Assessment/Plan Assessment/Plan Admission Status: Observation (1) Headache Status: Acute Assessment & Plan: Uncertain etiology, consider vertiginous migraine versus hypertensive versus other. Improved somewhat with ketoralac, will continue with caution given blood pressure. CT head yesterday am in prior ER visit okay, CTA this am without hemorrhage or blockages. Qualifiers: Qualified Codes: R51.9 - Headache, unspecified (2) Dizziness Status: Acute Assessment & Plan: Vertigo- migrainous vs BPPV vs Meniere's vs Schwannoma vs vestibular neuritis. Ischemic less likely with normal CTA, but discussed possibility with patient. -Treat headache and nausea, improving slightly (3) Elevated blood pressure reading Status: Acute Assessment & Plan: Reports no history of HTN, but review of clinic chart shows BP in 140s in 2018, has not been seen since, so this may be chronic hyper tension. Start amlodipine 5 mg daily. (4) Nausea & vomiting Status: Acute Assessment & Plan: Suspect secondary to vertigo vs viral, symptomatic treatment. (5) DVT prophylaxis Status: Acute Assessment & Plan: Enoxaparin KAVON LICONA MD Oct 09, 2021 10:15
[2021-10-09 11:19] VITALS: BP 162/87
[2021-10-09] MEDS ORDERED: diphenhydrAMINE 50 MG/ML INJ (BENADRYL) IVP NR (11:30)
[2021-10-09] MEDS ORDERED: METOCLOPRAMIDE INJ 10 MG/2 ML (REGLAN) IVP NR (11:45)
[2021-10-09] MEDS: KETOROLAC 30 MG/ML VIAL IVP PRN ×2 (12:11→17:44)
[2021-10-09] MEDS: ENOXAPARIN 40 MG/0.4 ML (LOVENOX) SYR SQ SCH (12:59)
[2021-10-09] MEDS: amLODIPine 5 MG (NORVASC) TAB PO SCH (13:00)
[2021-10-09 16:00] VITALS: BP 145/78
[2021-10-09] MEDS: MECLIZINE 25 MG (ANTIVERT) TAB PO PRN (18:03)
[2021-10-09 19:47] VITALS: BP 163/90
[2021-10-10] VITALS (14 sets, daily range): BP systolic 123–181; BP diastolic 78–104
[2021-10-10] MEDS: MECLIZINE 25 MG (ANTIVERT) TAB PO PRN (03:41)
[2021-10-10] MEDS: KETOROLAC 30 MG/ML VIAL IVP PRN ×4 (03:41→19:04)
[2021-10-10 05:56] LABS: HEMATOCRIT 43 % (40-54); HEMOGLOBIN 14.7 g/dL (13.3-17.7); MEAN CORPUSCULAR HEMOGLOBIN 30 pg (25-34); MEAN CORPUSCULAR HGB CONC 34 g/dL (32-36); MEAN CORPUSCULAR VOLUME 87 fL (80-99); PLATELET COUNT 230 10^3/uL (130-400); WHITE BLOOD COUNT 6.4 10^3/uL (4.3-11.0)
[2021-10-10 06:13] LABS: CALCIUM 8.6 MG/DL (8.5-10.1)
[2021-10-10 06:18] LABS: CREATININE SERUM 1.09 MG/DL (0.60-1.30)
[2021-10-10] MEDS: amLODIPine 5 MG (NORVASC) TAB PO SCH (08:24)
[2021-10-10] MEDS: ACETAMINOPHEN 500 MG TAB (TYLENOL) PO PRN (08:27)
[2021-10-10] MEDS ORDERED: HYDROcodone/APAP 5 MG/325 MG (LORTAB) TAB PO ONE (09:00)
[2021-10-10] MEDS ORDERED: HYDROcodone/APAP 5 MG/325 MG (LORTAB) TAB ONE (09:00)
[2021-10-10] MEDS ORDERED: LORazepam INJ 2 MG/ML (ATIVAN) VIAL ONE (09:57)
[2021-10-10] MEDS ORDERED: morphine INJ 4 MG/ML 1 ML (VIAL/SYRINGE) ONE (09:57)
[2021-10-10] MEDS ORDERED: LORazepam INJ 2 MG/ML (ATIVAN) VIAL IVP ONE (10:00)
[2021-10-10] MEDS: morphine INJ 10 MG/ML 1ML (SYR OR VIAL) IVP PRN ×3 (10:20→23:07)
--- NOTE | 2021-10-10 11:35 | Diagnostic Imaging Report ---
PROCEDURE: MR imaging of the brain without contrast. TECHNIQUE: Multiplanar, multisequence MR imaging of the brain was performed without contrast. INDICATION: Headache and dizziness. FINDINGS: Ventricles and sulci are within normal limits. There are fairly extensive periventricular and subcortical white matter signal abnormalities, much greater than expected for a patient this age. No diffusion abnormality is identified. No acute intra-axial or extra-axial hemorrhage is detected. The normal expected flow-voids within the carotid siphons are seen. Corpus callosum is unremarkable. Sella and parasellar structures are unremarkable. IMPRESSION: There are extensive periventricular and subcortical white matter changes, greater than expected for a patient this age. While this may be on the basis of chronic microvascular ischemia, possibility of demyelinating process cannot be entirely excluded. No other significant abnormality is seen. Dictated by: Dictated on workstation # [id number]
[2021-10-10] MEDS: ENOXAPARIN 40 MG/0.4 ML (LOVENOX) SYR SQ SCH (12:52)
[2021-10-10] MEDS ORDERED: ONDANSETRON 4 MG/2 ML (SDV) Z0FRAN IVP PRN (13:00)
--- NOTE | 2021-10-10 14:00 | Progress Note ---
Subjective Subjective/Events-last exam Initially saw patient at about 945 am, he was reporting return of now "11/10" headache compared to 6/10 yesterday afternoon. He says this started last night and continues to be whole head, he also continues to feel spinning and very nauseated. His blood pressure was in the 160s overnight but is rising again this morning. His family is at bedside and very concerned and wondering if he should be transferred. They are also concerned about an aneurysm, and I reassured them that he did have the CTA of his head and neck yesterday which showed no aneurysm or blockages. He still denies neck pain, numbness, tingling, weakness or vision changes. His significant other notes that the right side of his face looks a little swollen and his right eye looks like it is sticking out more than normal. Repeat evaluation after lunch and to review MRI findings with patient and family, he is resting more comfortably and rates headache 7/10, but is still vomiting, is getting ondansetron now. Objective Exam Last Set of Vital Signs Vital Signs Date Time Temp Pulse Resp B/P (MAP) Pulse Ox O2 Delivery O2 Flow Rate FiO2 10/10/21 12:02 37.3 92 18 178/93 (121) 97 Room Air Capillary Refill : Less Than 3 Seconds I&O Intake and Output 10/10/21 00:00 Intake Total 1250 ml Output Total 725 ml Balance 525 ml Intake Oral 1250 ml Output Urine Total 725 ml # Bowel Movements 1 General: Alert, Severe Distress (teaful, clutching head, vomiting) HEENT: PERRLA Lungs: Clear to Auscultation, Normal Air Movement Heart: Regular Rate, No Murmurs Abdomen: Normal Bowel Sounds, Soft Neuro: Normal Speech, Cranial Nerves 3-12 NL, Other (5/5 strength in upper and lower extremities) Results/Procedures Lab Laboratory Tests 10/10/21 05:00: 10/10/21 05:42: White Blood Count 6.4, Red Blood Count 4.99, Hemoglobin 14.7, Hematocrit 43, Mean Corpuscular Volume 87, Mean Corpuscular Hemoglobin 30, Mean Corpuscular Hemoglobin Concent 34, Red Cell Distribution Width 12.7, Platelet Count 230, Mean Platelet Volume 9.0, Sodium Level 137, Potassium Level 4.0, Chloride Level 104, Carbon Dioxide Level 20L, Anion Gap 13, Blood Urea Nitrogen 17, Creatinine 1.09, Estimat Glomerular Filtration Rate 79, BUN/Creatinine Ratio 16, Glucose Level 90, Calcium Level 8.6 Radiology CTA head 10/09/2021: IMPRESSION: 1. Normal vasculature in the head and neck without large vessel occlusion MRI brain 10/10/21: "IMPRESSION: There are extensive periventricular and subcortical white matter changes, greater than expected for a patient this age. While this may be on the basis of chronic microvascular ischemia, possibility of demyelinating process cannot be entirely excluded. No other significant abnormality is seen." Assessment/Plan Assessment/Plan (1) Headache Status: Acute Assessment & Plan: 10/10 Uncertain etiology, consider vertiginous migraine versus hypertensive versus other. Improved somewhat with Toradol, will continue with caution given blood pressure. CT head yesterday am in prior ER visit okay, CTA this am without hemorrhage or blockages. 10/11 given persistent severity and minimal response to treatments even with blood pressure improvement, ordered MRI this morning. Also discussed with family would not typically use opiate for headache, but given his intractable status and concern about trying to use triptan with his elevated blood pressure, and his lack of sleep, will trial morphine, partly to try to get rest. Follow up later in day on MRI showed more than expected white matter changes, concerning for possible demyelinating disorder, would like to have Neurology evaluation. [facility] about transfer, and they suggested [facility], [facility] and they are reviewing his information. Qualifiers: Qualified Codes: R51.9 - Headache, unspecified (2) Dizziness Status: Acute Assessment & Plan: 10/09 Vertigo- migrainous vs BPPV vs Meniere's vs Schwannoma vs vestibular neuritis. Ischemic less likely with normal CTA, but discussed possibility with patient. 10/10- MRI today as noted above. Trial of benzodiazepine given persistent severity. (3) Elevated blood pressure reading Status: Acute Assessment & Plan: 10/09 Reports no history of HTN, but review of clinic chart shows BP in 140s in 2018, has not been seen since, so this may be chronic hypertension. Started amlodipine 5 mg daily. 10/10 Continues to be hypertensive but with lower maximum over last 24 hours (181/96), added hydrochlorothiazide. However, he is vomiting frequently so may not benefit as much from oral meds. Receiving prn IV hydralazine. Suspect HTN is contributing to headache and possibly MRI changes, will work on gradually decreasing to avoid under perfusion. (4) Nausea & vomiting Status: Acute Assessment & Plan: Suspect secondary to vertigo vs viral, symptomatic treatment. (5) DVT prophylaxis Status: Acute Assessment & Plan: Enoxaparin KAVON SMITH MD Oct 10, 2021 14:00
[2021-10-10] MEDS ORDERED: niCARdipine IV 50 MG in NS (IVPB) 230 ML IV SCH (14:15)
[2021-10-10] MEDS ORDERED: SCOPOLAMINE 1.5 MG (TRANSDERM-SCOP) PATCH TD ONE (14:15)
[2021-10-10] MEDS: PROMETHAZINE INJ 25 MG/ML (PHENERGAN) AMP IVP PRN ×2 (18:34→23:07)
[2021-10-10] MEDS ORDERED: amLODIPine 10 MG (NORVASC) TAB PO NR (19:00)
== END 2021-10-10 23:45 | disposition short-term general hospital (02) | DRG 305 ==
LOC: EDUNIT# 20:21 → ER 20:25 → 4TH 21:57 → OBSVTOIN 10-10 14:11 → ICU 10-10 14:37
PROVIDERS: ADMIT Family Medicine; ATTEND Family Medicine
DX: I16.0 Hypertensive urgency (principal); I10 Essential (primary) hypertension; R51.9 Headache, unspecified; R26.81 Unsteadiness on feet; R42 Dizziness and giddiness; F17.210 Nicotine dependence, cigarettes, uncomplicated; Z82.49 Family history of ischemic heart disease and other diseases of the circulatory system
CPT/HCPCS: 36415; 70496; 70498; 70551; 80048; 80053; 82088; 84244; 85025; 85027; 93005; 94760; G0378

== ENCOUNTER 2022-07-14 08:53 | Emergency (ER) | payer BC ==
[~2022-07-14] VITALS: Ht 165.1 cm; Wt 59.9 kg
[~2022-07-14 08:53] MED LIST changes: +MULT-1136 PO
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
[2022-07-14] MEDS ORDERED: PRD50T PO (09:21)
[2022-07-14 09:32] VITALS: BP 121/69
== END 2022-07-14 09:32 | disposition home or self-care (01) ==
LOC: EDUNIT# 08:53 → ER 08:55
DX: H57.89 Other specified disorders of eye and adnexa (principal); T49.0X5A Adverse effect of local antifungal, anti-infective and anti-inflammatory drugs, initial encounter
CPT/HCPCS: 99281

== ENCOUNTER 2022-07-25 07:53 | Emergency (ER) | payer BC ==
[~2022-07-25] VITALS: Ht 165.1 cm; Wt 59.0 kg
[~2022-07-25 07:53] MED LIST changes: +PRD50T PO
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
[2022-07-25] MEDS ORDERED: predniSONE 20 MG TAB PO ONE (08:15)
[2022-07-25] MEDS ORDERED: predniSONE 10 MG TAB PO ONE (08:15)
[2022-07-25] MEDS ORDERED: PRD50T PO (08:30)
[2022-07-25 08:55] VITALS: BP 127/65
== END 2022-07-25 08:55 | disposition home or self-care (01) ==
LOC: EDUNIT# 07:53 → ER 07:54
DX: L25.1 Unspecified contact dermatitis due to drugs in contact with skin (principal); T36.8X5A Adverse effect of other systemic antibiotics, initial encounter
CPT/HCPCS: 99283